=== PATIENT | male | born 1990 | race African-American/Black ===

== ENCOUNTER 2021-01-19 04:29 | Emergency (ER) | payer SELFPAY ==
[~2021-01-19] VITALS: Ht 182.9 cm; Wt 66.0 kg
[2021-01-19] MEDS ORDERED: SODIUM CHLORIDE 0.9% 1,000 ML IV ONE (04:45)
[2021-01-19 05:09] LABS: HEMATOCRIT. 38.6 % (42.0-52.0); HEMOGLOBIN. 12.5 g/dL (14.0-18.0); MEAN CORPUSCULAR HEMOGLOBIN 28.3 pg (28.0-32.0); MEAN CORPUSCULAR VOLUME 87.3 fL (80.0-94.0); MEAN PLATELET VOLUME 8.7 fl (7.4-10.4); PLATELET 131 x1000/uL (130-400); RED BLOOD CELL COUNT 4.43 mill/uL (4.7-6.1); RED CELL DISTRIBUTION WIDTH 13.4 % (11.6-14.6)
[2021-01-19 05:28] LABS: CHLORIDE 102 mEq/L (98-107)
[2021-01-19 05:33] LABS: ETHANOL BLOOD < 10 mg/dL
[2021-01-19 07:05] VITALS: BP 112/70
[2021-01-19 07:29] LABS: ATYPICAL LYMPHOCYTES 2
[2021-01-19 07:30] LABS: PLATELET ESTIMATE NORMAL
== END 2021-01-19 07:06 | disposition home or self-care (01) ==
LOC: ER 04:29
DX: R53.1 Weakness (principal); R42 Dizziness and giddiness; R00.1 Bradycardia, unspecified
CPT/HCPCS: 36415; 80053; 80320; 83690; 85025; 93005; 96360; 99284; J7030; G0480